=== PATIENT | male | born 1985 | race Asian ===

== ENCOUNTER → 2016-08-19 | Outpatient (CLI) | payer OTHER ==
--- NOTE | 2016-08-19 08:05 | DIAGNOSTIC IMAGING REPORT ---
CT SCAN OF THE PARANASAL SINUSES CLINICAL HISTORY: Chronic sinusitis. COMPARISON STUDY: No priors. TECHNIQUE: High-resolution CT scan of the paranasal sinuses is performed. Images are reviewed in the axial, sagittal, and coronal planes. IV contrast was not administered for this examination. The examination is performed using the fusion protocol. CT DOSE: 576.70 mGy.cm FINDINGS: Maxillary antra: There is complete opacification of the left maxillary antrum contains slightly hyperdense secretions. There is mild to moderate mucosal thickening in the right maxillary antrum. Anterior ethmoid sinuses: Subtotal opacification on the left. Mild to moderate mucosal thickening seen in the right. Posterior ethmoid sinuses: Mild mucosal thickening seen bilaterally, right greater than left. Sphenoid sinuses: Trace mucosal thickening is seen bilaterally. Frontal sinuses: There is moderate mucosal thickening on the left. Mild mucosal thickening is seen on the right. Ostiomeatal complexes: The left ostiomeatal complex is occluded. The right is patent. Frontoethmoidal and sphenoethmoidal recesses: The left frontoethmoidal recess appears occluded. The right frontoethmoidal recess is patent. The sphenoethmoidal recesses are patent, with narrowing on the right secondary to mucosal thickening. Carotid arteries: The carotid arteries are protuberant but covered. A septal attachment is seen on the right. Ethmoid roofs: The ethmoid roofs are symmetric. Nasal turbinates: Normal in appearance. Nasal septum: There is minimal leftward deviation of the bony nasal septum. Optic nerves: Covered. Orbits: The bony orbits are intact. Orbital contents are normal in appearance. Calvarium: The imaged calvarium is normal in appearance Mastoid air cells: Well pneumatized. Brain parenchyma: Partially visualized brain parenchyma is within normal limits. IMPRESSION: Paranasal sinus disease as above with complete opacification of the left maxillary antrum and occlusion of the left ostiomeatal complex. See discussion for detailed findings. Electronically signed by: Ritesh Cagle M.D. 08/19/2016 8:03 AM Dictated Date/Time: 08/19/2016 8:00 AM
== END | disposition home or self-care (01) ==
LOC: C.CTS 07:44
DX: J32.4 Chronic pansinusitis (principal)